=== PATIENT | female | born 2000 | race Caucasian/White ===

== ENCOUNTER 2024-06-13 17:01 | Emergency (ER) | payer OTHER ==
[~2024-06-13] VITALS: Ht 175.3 cm; Wt 86.3 kg
[2024-06-13 17:17] VITALS: TEMP 98.2
[2024-06-13] MEDS ORDERED: IBUP-1492 PO (18:43)
[2024-06-13 19:03] VITALS: BP 116/61; PULSE 72; RESP 18; O2SAT 100
[2024-06-13] MEDS: IBUPROFEN 600 MG TABLET PO ONE (19:04)
== END 2024-06-13 19:11 | disposition home or self-care (01) ==
LOC: EMS 17:20
DX: T23.101A Burn of first degree of right hand, unspecified site, initial encounter (principal); X10.0XXA Contact with hot drinks, initial encounter; Y93.89 Activity, other specified; Y92.89 Other specified places as the place of occurrence of the external cause; Y99.8 Other external cause status
CPT/HCPCS: 99282; Z7502; Z7610